=== PATIENT | male | born 1955 | race Caucasian/White ===

== ENCOUNTER 2022-06-18 12:14 | Emergency (ER) | payer MEDICARE, SELFPAY ==
[2022-06-18 12:27] VITALS: BP 155/83; PULSE 74; RESP 18; TEMP 36.5; O2SAT 97
--- NOTE | 2022-06-18 12:43 | ED.GENADUL_ITS ---
Discharge Plan Disposition Patient Disposition: HOME Condition: Improving Discharge Details Clinical Impression: COVID-19 Primary Care Provider: Unknown,Unknown ED Provider: Robe Hyman Home Meds and New Rx's Prescriptions: New Paxlovid (EUA) 300 mg (150 mg x 2)-100 mg tablets,dose pack See Rx Instructions .ROUTE .COMPLEX Qty: 30 0RF Rx Instructions: take TWO 150 mg tablets of nirmatrelvir with ONE 100 mg tablet of ritonavir twice daily for 5 days Continued amoxicillin 500 mg Capsule 1,000 mg PO Q8H codeine-guaifenesin 10-100 mg/5 mL Liquid 5 ml PO QHS Discharge Instructions Instructions: COVID-19 (Coronavirus Disease 2019) (ED), Face Coverings (Masks) and COVID-19 (ED) Additional Instructions: Home to rest today Continue small, frequent sips of fluids to maintain hydration. You qualify for the initiation of Paxlovid per the screening checklist tool provided by the FDA and CDC. Please follow-up with the [facility] for recheck if not improving in 3 to 5 days time Medical Decision Making 66-year-old male who denies any chronic medical problems. He has had upper respiratory illness for 4 days, today being day 5. Has had a cough with some production of sputum. He was seen at a clinic in [facility], [facility] he had an x-ray which revealed pneumonia and was placed on amoxicillin which she has been taking without difficulty. Today he had persistent mild myalgias and cough. His tested positive for COVID and he also had a home positive COVID test. Patient has no history of renal/hepatic impairment. No history of hypersensitivity reactions. He has no other concomitant medications. I do feel it is reasonable for him to continue the amoxicillin. He request treatment with Paxlovid which I believe is appropriate. I will prescribe this for him when he is stable for outpatient management. HPI General Mode of arrival: ambulatory . Date/Time Provider Initiated Documentation: 06/18/22 12:17 . Limitations to Documentation: no limitations . Information obtained by: patient . History of Present Illness 66 year old M presents to the emergency department with the chief complaint of 4-1/2 days upper respiratory illness, COVID positive at home, described as mild, and is localized to the chest. Patient reports no radiation. Patient started experiencing this day(s) and it has been intermittent. No relieving factors improve symptom(s), No exacerbating factors reported . Patient notes cough; denies chest pain, fever/chills, nausea/vomiting and shortness of breath. Patient did receive the following treatments prior to arrival, other (Amoxicillin for pneumonia diagnosed by x-ray) Related Data Home Medications Medication Instructions Recorded Confirmed amoxicillin 500 mg capsule 1,000 mg PO Q8H 06/18/22 06/18/22 codeine 10 mg-guaifenesin 100 mg/5 5 ml PO QHS 06/18/22 06/18/22 mL oral liquid nirmatrelvir 300 mg (150 mg See Rx Instructions PO .COMPLEX 06/18/22 x2)-ritonavir 100 mg tablet,dose #30 dose pk pack(EUA) (Paxlovid) Previous Rx's Medication Instructions Recorded nirmatrelvir 300 mg (150 mg See Rx Instructions PO .COMPLEX 06/18/22 x2)-ritonavir 100 mg tablet,dose #30 dose pk pack(EUA) (Paxlovid) Allergies Allergy/AdvReac Type Severity Reaction Status Date / Time No Known Allergies Allergy Unverified 06/18/22 12:31 General Stated Complaint: RespSymp CAROL: 4 Review of Systems Narrative: No cough, no difficulty breathing. Denies history of liver or kidney disease. No chronic medications. No history of hypersensitivity reactions. No use of a statin. 7 systems reviewed and otherwise negative PFSH All Active Problems (Updated 06/18/22 @ 12:52 by Robe Hyman MD) COVID-19 (Acute) Social History Smoking/Tobacco Use Status: Never Smoking risk assessment performed?: Yes Alcohol Intake: never Drug use: Never Substance use type: does not use Do you feel safe at home: Yes Do you feel safe in your relationship?: Yes Exam Narrative Exam Narrative: GEN: awake, alert, oriented 3. Pleasant, well groomed, interactive. HEAD: Normocephalic, atraumatic ENT: Mucous membranes moist, oropharynx unremarkable, External ear exam unremarkable EYES: PERRL, EOMI NECK: Full ROM, no ROGERS, no menigismus CHEST/RESP: Nontender, clear to auscultation bilateral, no wheeze/rhonchi/rales CARDIOVASCULAR: RRR, no murmur, rub aretha. 2+ Rad pulse bilateral ABDOMEN: Soft, nontender, no mass. +Bowel sounds EXT: Full ROM, no edema, no rash Neuro: Grossly normal neurologic exam, conversant, interactive. Psych: Speech fluent, thoughts congruent, affect normal Course Vital Signs Vital signs: Vital Signs Temperature 36.5 C 06/18/22 12:27 Pulse 74 06/18/22 12:27 Respiratory Rate 18 06/18/22 12:27 Blood Pressure 155/83 H 06/18/22 12:27 Pulse Oximetry 97 06/18/22 12:27 Temperature 36.5 C 06/18/22 12:27 Temperature Source Temporal Artery Scan 06/18/22 12:27 Pulse 74 06/18/22 12:27 Respiratory Rate 18 06/18/22 12:27 Respiratory Effort Non-Labored 06/18/22 12:33 Respiratory Depth Normal 06/18/22 12:33 Blood Pressure 155/83 H 06/18/22 12:27 Blood Pressure Position Sitting 06/18/22 12:27 Pulse Oximetry 97 06/18/22 12:27 Oxygen Delivery Method Room Air 06/18/22 12:27 Oxygen Flow Rate 0 06/18/22 12:27 Pain Level 0 06/18/22 12:27
== END 2022-06-18 13:04 | disposition home or self-care (01) ==
PROVIDERS: Emergency Provider Emergency Medicine
DX: U07.1 COVID-19 (principal)
CPT/HCPCS: 99283; 99284

== ENCOUNTER 2023-05-09 14:05 | Outpatient (REF) | payer MEDICARE, SELFPAY ==
[2023-05-09 21:32] LABS: ALT 43 U/L (16-63); AST 33 U/L (15-37); Albumin 3.7 g/dL (3.4-5.0); Alkaline Phosphatase 72 U/L (46-116); Anion Gap 6.9 mmol/L (3-11); BUN 10 mg/dL (7-18); Bilirubin, Total 0.9 mg/dL (0.2-1.0); CO2 28.1 mmol/L (21.0-32.0); CREATININE 0.9 mg/dL (0.70-1.30); Calculated LDL 142 mg/dL (<100); Chloride 102 mmol/L (98-107); Cholesterol 231 mg/dL (<200); Estimated GFR 93.61 (mL/min/1.73m2); Glucose 117 mg/dL (74-106); HDL Cholesterol 46 mg/dL (40-60); Potassium 4.1 mmol/L (3.5-5.1); Sodium 137 mmol/L (136-145); Total Protein 7.3 g/dL (6.4-8.2); Triglyceride 219 mg/dL (<150)
[2023-05-09 22:00] LABS: COMMENT (LAB VIEW ONLY) 34.08 mg/dL; Microalb ug/mg Crea 48.1 ug/mg Cr
[2023-05-10 19:58] LABS: PSA, Screening 1.4 ng/mL (<=4.5)
[2023-05-11 10:41] LABS: Hepatitis C Ab w Rflx HCV PCR Negative (Negative)
[2023-05-11 12:45] LABS: HIV-1/2 Ag & Ab Screen Negative (Negative)
== END 2023-05-09 14:06 | disposition home or self-care (01) ==
LOC: NCHCN 14:05
PROVIDERS: Visit Provider Nurse Practitioner Family
DX: E11.9 Type 2 diabetes mellitus without complications (principal); Z12.5 Encounter for screening for malignant neoplasm of prostate; I10 Essential (primary) hypertension; E66.9 Obesity, unspecified; Z11.59 Encounter for screening for other viral diseases
CPT/HCPCS: 80053; 80061; 84153; 86803; 87389; 82043; 82570; 83036

== ENCOUNTER 2023-09-12 17:58 | Outpatient (REF) | payer MEDICARE, SELFPAY ==
[2023-09-12 21:35] LABS: ALT 25 U/L (16-63); AST 20 U/L (15-37); Albumin 3.7 g/dL (3.4-5.0); Alkaline Phosphatase 84 U/L (46-116); Anion Gap 10.7 mmol/L (3-11); BUN 12 mg/dL (7-18); Bilirubin, Total 0.5 mg/dL (0.2-1.0); CO2 29.3 mmol/L (21.0-32.0); CREATININE 0.8 mg/dL (0.70-1.30); Calcium 9.5 mg/dL (8.5-10.1); Calculated LDL 86 mg/dL (<100); Chloride 101 mmol/L (98-107); Cholesterol 159 mg/dL (<200); Glucose 95 mg/dL (74-106); HDL Cholesterol 54 mg/dL (40-60); Potassium 4.1 mmol/L (3.5-5.1); Sodium 141 mmol/L (136-145); Total Protein 7.2 g/dL (6.4-8.2); Triglyceride 98 mg/dL (<150)
== END 2023-09-12 17:59 | disposition home or self-care (01) ==
LOC: NCHCN 17:58
PROVIDERS: Visit Provider Nurse Practitioner Family
DX: E11.9 Type 2 diabetes mellitus without complications (principal)
CPT/HCPCS: 80053; 80061

== ENCOUNTER 2023-12-12 22:14 | Outpatient (REF) | payer MEDICARE, SELFPAY ==
[2023-12-12 21:30] LABS: Hemoglobin A1C 5.8 % (<5.7)
[2023-12-12 21:34] LABS: ALT 24 U/L (16-63); AST 20 U/L (15-37); Albumin 3.6 g/dL (3.4-5.0); Alkaline Phosphatase 87 U/L (46-116); Anion Gap 7.7 mmol/L (3-11); BUN 18 mg/dL (7-18); Bilirubin, Total 0.6 mg/dL (0.2-1.0); CO2 29.3 mmol/L (21.0-32.0); CREATININE 0.9 mg/dL (0.70-1.30); Calcium 9.4 mg/dL (8.5-10.1); Calculated LDL 109 mg/dL (<100); Chloride 102 mmol/L (98-107); Cholesterol 191 mg/dL (<200); Estimated GFR 93.03 (mL/min/1.73m2); Glucose 92 mg/dL (74-106); HDL Cholesterol 57 mg/dL (40-60); Potassium 4.4 mmol/L (3.5-5.1); Sodium 139 mmol/L (136-145); Total Protein 6.9 g/dL (6.4-8.2); Triglyceride 129 mg/dL (<150)
== END 2023-12-12 22:15 | disposition home or self-care (01) ==
LOC: NCHCN 22:14
PROVIDERS: Visit Provider Nurse Practitioner Family
DX: E11.9 Type 2 diabetes mellitus without complications (principal)
CPT/HCPCS: 80053; 80061; 83036

== ENCOUNTER 2024-06-10 19:27 | Outpatient (CLI) | payer MEDICARE, SELFPAY ==
[2024-06-10 16:16] LABS: Abs Immature Grans 0.13 10^3/uL (0.0-0.06); Absolute Basophil Count 0.08 10^3/uL (0.0-0.2); Absolute Eosinophil Count 0.13 10^3/uL (0.0-0.7); Absolute Lymphocyte Count 1.46 10^3/uL (1.2-3.4); Absolute Neutrophil Count 8.28 10^3/uL (1.2-6.7); Basophils % 0.8 %; Eosinophils % 1.2 %; HCT 48.8 % (40.0-50.0); HGB 16.1 g/dL (13.5-17.5); Immature Grans % 1.2 %; Lymphocytes % 13.8 %; MCV 88 fL (80-95); MPV 10.1 fL (8.0-11.0); Monocytes % 4.7 %; Neutrophils % 78.3 %; Platelet Count 197 10^3/uL (130-400); RBC 5.55 10^6/uL (4.36-5.78); RDW 14.1 % (11.8-14.1); RDW-SD 45.3 fL; WBC 10.58 10^3/uL (4.4-10.8)
[2024-06-10 17:18] LABS: ALT 26 U/L (16-63); AST 15 U/L (15-37); Albumin 3.7 g/dL (3.4-5.0); Alkaline Phosphatase 86 U/L (46-116); BUN 11 mg/dL (7-18); Bilirubin, Direct 0.2 mg/dL (0.0-0.2); Bilirubin, Total 0.65 mg/dL (0.2-1.0); CREATININE 0.8 mg/dL (0.70-1.30); Calcium 9.8 mg/dL (8.5-10.1); Chloride 102 mmol/L (98-107); FREE T4 1.01 ng/dL (0.76-1.46); Glucose 111 mg/dL (74-106); Potassium 4.5 mmol/L (3.5-5.1); Sodium 138 mmol/L (136-145); TSH 1.96 uIU/Ml (0.36-3.74); Total Protein 6.6 g/dL (6.4-8.2)
--- OUTSIDE RECORDS SUMMARY | 2024-06-10 19:35 | XMS_ITS ---
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 If you have left the hospital and have any questions, please contact your primary care physician. Reason For Referral No Data Found Allergies and Adverse Reactions Allergy Substance Reaction Severity Start Date Concern Status Co de Code System No Known Drug Allergies Active 684217814 SNOMED-CT Plan of Treatment PRE-OP TESTING 12/25/2022 Encounters Encounter Diagnosis Start Date Code Code Sys tem Follow-up orthopedic assessment 01/17/2023 [id number] SNOMED-CT Personal Care Team Section Performer Name Performer Role Active Date Inactive Da te
--- OUTSIDE RECORDS SUMMARY | 2024-06-10 19:35 | XMS_ITS | Continuity of Care Document ---
Author Organization [facility], [facility] Address [address] [place] [address] Assessment Encounter Date Assessment Date Assessment LastModified by Organization Details LastModified Time 05/15/2024 05/15/2024 The clinician assessed that the patient's blood sugar levels are within the normal range and that the patient may not be used to having normal blood sugar levels after being high for a long period of time. The clinician does not believe there is a need to change the patient's diabetes medications. The patient's episode of passing out while driving may have been due to dehydration from not drinking enough water during the hot weather. The clinician recommends increasing water intake, especially during hot weather and when working outdoors. [email or web address] Not available 05/16/2024 07:22:46 Plan of Treatment Reminders Order Date Submit Date Provider Last Modified By Organization Details Last Modified Time Details Appointments Follow Up 30 2023 04:30P M Not available Not available Not available Lab glucose, fingerst ick, blood 2023 024 [email or web address] [facility], [address] [facility], [place], [address], 05/16/2024 07:22:48 Referral None recorded . Procedures None recorded . Surgeries None recorded . Imaging None recorded . Medication Orders None recorded . Patient TargetsNo targets recorded. Patient Instructions Encounter Date Encounter Id Patient Instructions Last Modified By Organization Details Last Modified Time 05/15/2024 [id number] diet Not available 06/2024 07:23:57 exercise Not available 05/16 07:23:57 - Continue takin g diabetes medications, including metformin and Victoza - Continue taking blood pressure medication without changes - Increase water intake, especially during hot weather and when working outdoors - If blood sugar levels drop below 84, consider having a small snack - Follow up with primary care provider in one month [email or web address] Not available 05/15/2024 15:22:46 Reason for Referral None Reported. Results Created Date Observation Date Name Description Value Unit Range Abnormal Flag Note LastModifiedBy Organization Detail LastModifiedTime 05/15/20 24 05/15/2024 gluco se, finge rstic k, blood glucose 111 mg/dL 70-100 Not Available [address], [place], [address], 05/15/2024 15:11:25 Result Notes None recorded. Problems Name Problem SNOMED Code Status Onset Date Resolution Date Notes Provider Name and Address Organization Details Recorded Time Faustinoterry james hyperten matthew 82431240 Active 2022 [facility] 14:47:20 Osteoart hritis of knee 676119341 Active 2022 Problem Code: M17.9; Problem Code Type: ICD-10; [facility] 14:47:50 Hyperlip idemia 96971670 Active 2022 [facility] 4 14:47:29 Acquired right hallux rigidus 80318197644 4100 Active 2022 [facility] 4 14:46:23 Pain of joint of knee 7122662412 Active 2022 Bilatera l [facility] 4 14:48:08 Atopic dermatit is 53680550 Active 2022 [facility] 4 14:46:42 Cardiome leesa 0754676 Active 2022 --[facility]R [facility] 14:46[facility]59 Type 2 diabetes mellitus without complica tion 364667039 [facility] 20[facility] 14:49:19 Screenin g for malignan t neoplasm of prostate Active 2022 Problem Code: Z12.5; Problem Code Type: ICD-10; [facility] 14:48:30 Severe obesity 30392712002 104 Active 2022 (BMI > = 40) [facility] 14:49:07 Screenin g for malignan t neoplasm of colon Completed 202206/08/2023 Problem Code: Z12.11; Problem Code Type: ICD-10; Not Available [facility] 3 05:48:58 Adult health examinat ion Completed 202212/11/2023 Problem Code: Z00.00; Problem Code Type: ICD-10; [facility] 14:46:27 Dehiscen ce of external surgical incision wound 07025234003 9108 Completed 202205/09/2023 Problem Code: T81.31xA ; Problem Code Type: ICD-10; Not Available [facility] 3 05:48:58 Urine microalb umin detected 861605167 Active [address], [place], [address] , [facility] 3 16:50:23 Erectile dysfunct ion 800115812 Active [address], [place], [address] , [facility] 4 17:12:24 Allergic rhinitis 47917598 Active 2023 GOLDEN PANG, [employer]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 Medical Equipment None Reported. Allergies No known drug allergies Medications Name Sig Start Date Stop Date Status Note LastModified by Organization Details LastModified Time atorvasta tin 80 mg tablet TAKE 1 TABLET BY MOUTH EVERY DAY active Not Available Not Available No t Available atorvasta tin 20 mg tablet TAKE 1 TABLET BY MOUTH EVERY EVENING 03/19 completed Not Available Not Available Not Available clindamyc in HCl 300 mg capsule TAKE 1 CAPSULE BY MOUTH EVERY 6 HOURS FOR 7 DAYS 09/12 completed Not Available Not Available Not Available sildenafi l 50 mg tablet TAKE 1 TABLET BY MOUTH EVERY DAY active Not Available Not Available No t Available prednison e 20 mg tablet 2 PO daily X 3 days, then 1 PO daily X 3 days, then 0.5 PO daily X 3 days active Not Available Not Available No t Available triamcino lone acetonide 0.1 % topical cream Apply a small amount to affected area once a day as needed active Not Available Not Available No t Available tolnaftat e 1 % topical cream APPLY TOPICALL Y TO THE AFFECTED AREA TWICE DAILY 09/12 completed Not Available Not Available Not Available cephalexi n 500 mg capsule TAKE 1 CAPSULE BY MOUTH TWICE DAILY FOR 10 DAYS 09/12 completed Not Available Not Available Not Available losartan 25 mg tablet TAKE 1 TABLET BY MOUTH DAILY active Not Available Not Available No t Available Advil 200 mg tablet as needed 09/12 completed Not Available Not Available Not Available hydroxyzi ne HCl 25 mg tablet TAKE 1 TABLET BY MOUTH THREE TIMES DAILY FOR 10 DAYS NEEDED FOR ITCHING active Not Available Not Available No t Available methylpre dnisolone 4 mg tablets in a dose pack Take 1 dose pk by oral route as directed for 6 days, for itching. Take with food. No ibuprofe n. Monitor blood glucose carefull y.. 05/15 completed Not Available Not Available Not Available fluticaso ne propionat e 50 mcg/actua tion nasal spray,ayad pension SHAKE LIQUID AND USE 2 SPRAYS IN EACH NOSTRIL EVERY DAY active Not Available Not Available No t Available metformin ER 500 mg tablet,ex tended release 24 hr TAKE 2 TABLETS BY MOUTH EVERY DAY 2023 active Has held metformi n since 05/12/24, per triage instruct ion. Not Available Not Available Not Available oxycodone 5 mg tablet TAKE 1 TABLET BY MOUTH EVERY 6 HOURS FOR 3 DAYS NEEDED 09/12 completed Not Available Not Available Not Available olopatadi ne 0.2 % eye drops INSTILL 1 DROP INTO AFFECTED EYE(S) BY OPHTHALM IC ROUTE ONCE DAILY active Not Available Not Available No t Available Novofine 32 32 gauge x 1/4 needle Use 1 needle subcutan eously once daily with Victoza active Not Available Not Available No t Available liragluti de 0.6 mg/0.1 mL (18 mg/3 mL) subcutane ous pen injector Inject by subcutan eous route for 45 days. active Not Available Not Available No t Available OneTouch Verio test strips Use 1 strip via meter once a day as directed Check blood sugar daily. If blood sugar is less than 70 drink 4oz of juice and recheck in 15 mins until BG in within normal range (90-120) . active Not Available Not Available No t Available Trulicity 1.5 mg/0.5 mL subcutane ous pen injector ADMINIST ER 1.5 MG UNDER THE SKIN WEEKLY FOR 4 WEEKS active Not Available Not Available No t Available OneTouch Verio Flex Meter USE DIRECTED active Not Available Not Available No t Available OneTouch Delica Plus Lancet 33 gauge USE 1 LANCET ONCE A DAY TO CHECK BLOOD SUGAR IN MORNING NEEDED DRINK 4OZ JUICE IF BLOOD SUGAR LESS THAN 70 RECHECK IN 15 MINS AND REPEAT active Not Available Not Available No t Available Trulicity 3 mg/0.5 mL subcutane ous pen injector Inject 3 mg weekly after completi ng 4 weeks of 1.54 mg dose 2023 active Not Available Not Available Not Avai lable Ozempic 1 mg/dose (4 mg/3 mL) subcutane ous pen injector Inject 1 mg every week by subcutan eous route. 03/19 completed Not Available Not Available Not Available Ozempic 0.25 mg or 0.5 mg (2 mg/3 mL) subcutane ous pen injector INJECT 0.5 MG UNDER THE SKIN ONCE WEEKLY 02/10 completed Not Available Not Available Not Available Vitals Date Recorded Body height Body mass index (BMI) Body weight Body temperature Oxygen saturation Oxygen saturation in Arterial blood by Pulse oximetry Heart rate Systolic blood pressure Diastolic blood pressure Provider Name and Address Organization Details Last Updated DateTime 4 167.64 cm 39.8 kg/m2 277507. 6 g 98.1 [degF] 97 % 97 % 68 /min 142 mm[Hg] 96 mm[Hg] YUMIKO LARKIN RN [facility] 15:01:09 Social History Question Answer Notes LastModified by Organizat ion Details LastModified Time Tobacco Smoking Status Never Smoker ANISHA ANGUIANO, [facility] 12/12/2023 16:44:25 What Was The Date Of Your Most Recent Tobacco Screening? 04/09/2024 [email or web address] Information not available 04/09/2024 Has Tobacco Cessation Counseling Been Provided? No [email or web address] Information not available 05/15/2024 Do You Or Have You Ever Used Any Other Forms Of Tobacco Or Nicotine? No [email or web address] Information not available 05/15/2024 Sex: Male Functional Status None recorded. Mental Status None recorded. Family History Nothing Reported Notes:*Problem: Mother: dece ased age 83 heart disease, Pancreatic Cancer. Medical History No medical history recorded. Immunizations Vaccine Type Date Status Provider Name and Address Organization Details Recorded Time Tdap 08/22/2021 completed Not Available [facility] 06:09:43 COVID-19, mRNA, LNP-S, PF, 100 mcg/0.5mL dose or 50 mcg/0.25mL dose 12/15/2020 completed Not Available [facility] 08/17/2023 06:09:43 COVID-19, mRNA, LNP-S, PF, 100 mcg/0.5mL dose or 50 mcg/0.25mL dose 01/12/2021 completed Not Available [facility] 08/17/2023 06:09:43 Pneumococcal conjugate PCV20, polysaccharide [id number] conjugate, adjuvant, PF 05/09/2023 completed Not Available [facility] 08/17/2023 06:09:43 COVID-19, mRNA, LNP-S, bivalent, PF, 30 mcg/0.3 mL dose 07/28/2022 completed Not Available [facility] 08/17/20 06:09:43 COVID-19, mRNA, LNP-S, PF, erin-sucrose, 30 mcg/0.3 mL 09/12/2023 completed UYMIKO LARKIN RN null, [facility] 09/19/2023 11:57:43 Influenza, high-dose, quadrivalent, PF 09/12/2023 completed YUMIKO LARKIN RN null, [facility] 09/19/2023 11:57:43 Past Encounters Encounter ID Performer Location Encounter Start Date Encounter Closed Date Diagnosis/Indication Diagnosis SNOMED-CT Code Diagnosis ICD10 Code [id number] MEGHANA DAVIES, [address] [address] 05/15/2024 14:48:08 05/15/2024 15:21:58 Type 2 diabetes mellitus without complication 869238227 E11.9 Essential hypertension 17767247 I10 Obesity 069923950 E66.9 Health Concerns Section Related Observation LastModified by Organization Detai ls LastModified Time None Recorded Concern Status LastModified by Organization Details LastModified Time None Recorded Payers Encounter Date Sequence Insurance Name Policy Number Policy Esparza Covered Member ID Esparza Member ID Guarantor Name 05/15/2024 1 [facility] (MEDICARE REPLACEMENT/A DVANTAGE - PPO) [id number] Tomy Wan [id number] Tomy Wan Notes Date Note Type Note Provider Name and Address Organization Details Recorded Time 05/15/2024 text/html HPI Notes: 68-year-old male patient presenting with concerns about blood sugar levels, slightly high blood pressure, and a recent episode of passing out. The patient has been experiencing episodes of sweating and feeling like his blood sugars are low. He has measured his blood sugar levels and found them to be in the range of 78 to 111. The patient's primary care provider and backup doctor believe that his blood sugar levels are actually normal, and he may not be used to having normal blood sugar levels after being high for a long period of time. The patient's blood pressure was slightly elevated at 142/90 during the visit, but it decreased to 128/84 after discussing his concerns with the clinician. The patient is currently on blood pressure medication, which the clinician recommends continuing. The patient experienced an episode of passing out on his way home from work while driving. He did not have any chest pain, shortness of breath, or dizziness at the time and was not dehydrated. The clinician suspects that the patient may have been dehydrated due to the hot weather and not drinking enough water. 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 MEGHANA DAVIES, [employer] [address], [place], [address], [place] - [facility] 05/16/2024 07:24:03
--- OUTSIDE RECORDS SUMMARY | 2024-06-10 19:35 | XMS_ITS | Continuity of Care Document ---
Author Organization [facility], [facility] Address [address] [place] [address] Assessment No assessment recorded. Plan of Treatment Reminders Order Date Submit Date Provider Last Modified By Organization Details Last Modified Time Details Appointments Follow Up 2023 04:30P M Not available Not available Not available Lab None recorded. Referral None recorded. Procedures None recorded. Surgeries None recorded. Imaging None recorded. Medication Orders hydroxyzi ne HCl 25 mg tablet 2023 024 [facility][id number], [address], [place], [place], [id number], 06/02/2024 17:20:01 prednison e 20 mg tablet 2023 024 [facility] #[id number], [address], [place], [place], [id number], 06/02/2024 17:20:00 Patient TargetsNo targets recorded. Patient InstructionsNo instructions recorded. Reason for Referral None Reported. Problems Name Problem SNOMED Code Status Onset Date Resolution Date Notes Provider Name and Address Organization Details Recorded Time [facility] hyperten matthew 40878871 Active 2022 Mariann nagy [facility] 14:47:20 Osteoart hritis of knee 183937730 Active 2022 Problem Code: M17.9; Problem Code Type: ICD-10; Mariann nagy [facility] 03/05/202 4 14:47:50 Hyperlip idemia 57887331 Active 2022 [facility] 4 14:47:29 Acquired right hallux rigidus 02541051668 4100 Active 2022 [facility] 4 14:46:23 Pain of joint of knee 8841457068 Active 2022 Bilatera l [facility] 4 14:48:08 Atopic dermatit is 37108334 Active 2022 [facility] 4 14:46:42 Cardiome leesa 6655353 Active 2022 --noted on CXR [facility] 4 14:46:59 Type 2 diabetes mellitus without complica tion 267660926 Active 2022 [facility] 4 14:49:19 Screenin g for malignan t neoplasm of prostate Active 2022 Problem Code: Z12.5; Problem Code Type: ICD-10; [facility] 4 14:48:30 Severe obesity 29673801428 104 Active 2022 (BMI > = 40) [facility] 4 14:49:07 Screenin g for malignan t neoplasm of colon Completed 202206/08/2023 Problem Code: Z12.11; Problem Code Type: ICD-10; Not Available [facility] 3 05:48:58 Adult health examinat ion Completed 202212/11/2023 Problem Code: Z00.00; Problem Code Type: ICD-10; [facility] 4 14:46:27 Dehiscen ce of external surgical incision wound 08556080302 9108 Completed 202205/09/2023 Problem Code: T81.31xA ; Problem Code Type: ICD-10; Not Available [facility] 3 05:48:58 Urine microalb umin detected 939037431 Active 2022 MIQUEL MARTIN [address], [place], [address] , [facility] 3 16:50:23 Erectile dysfunct ion 888537224 Active [address], [place], [address] , [facility] 4 17:12:24 Allergic rhinitis 62184243 Active 2023 MIQUEL MARTIN [address], [place], [address] , [facility] 4 18:56:22 Obesity 976125937 Active [address], [place], [address] , [facility] 4 07:23:26 Problem Notes None recorded. Medical [...] Arterial blood by Pulse oximetry Heart rate Respiratory rate Systolic blood pressure Diastolic blood pressure Provider Name and Address Organization Details Last Updated DateTime 4 167.64 cm 39.7 kg/m2 051975. 72 g 98.4 [degF] 96 % 96 % 87 /min 17 /min 153 mm[Hg] 89 mm[Hg] LARS SCHERER MA [facility] 16:04:11 Social History Question Answer Notes LastModified by Organizat ion Details LastModified Time Tobacco Smoking Status Never Smoker ANISHA ANGUIANO [facility] 12/12/2023 16:44:25 What Was The Date Of Your Most Recent Tobacco Screening? 04/09/2024 [email or web address] Information not available 04/09/2024 Has Tobacco Cessation Counseling Been Provided? No [email or web address] Information not available 05/15/2024 Do You Or Have You Ever Used Any Other Forms Of Tobacco Or Nicotine? No [email or web address] Information not available 05/15/2024 Sex: Male Functional Status None recorded. Mental Status None recorded. Family History Nothing Reported Notes:*Problem: Mother: dece ased age 83 heart disease, Pancreatic Cancer. Medical History No medical history recorded. Immunizations Vaccine Type Date Status Provider Name and Address Organization Details Recorded Time Tdap 08/22/2021 completed Not Available [facility] 06:09:43 COVID-19, mRNA, LNP-S, PF, 100 mcg/0.5mL dose or 50 mcg/0.25mL dose 12/15/2020 completed Not Available [facility] 08/17/2023 06:09:43 COVID-19, mRNA, LNP-S, PF, 100 mcg/0.5mL dose or 50 mcg/0.25mL dose 01/12/2021 completed Not Available [facility] 08/17/2023 06:09:43 Pneumococcal conjugate PCV20, polysaccharide [id number] conjugate, adjuvant, PF 05/09/2023 completed Not Available [facility] 08/17/2023 06:09:43 COVID-19, mRNA, LNP-S, bivalent, PF, 30 mcg/0.3 mL dose 07/28/2022 completed Not Available [facility] 08/17/20 06:09:43 COVID-19, mRNA, LNP-S, PF, erin-sucrose, 30 mcg/0.3 mL 09/12/2023 completed KATHERYN RICHMOND, [facility] 09/19/2023 11:57:43 Influenza, high-dose, quadrivalent, PF 09/12/2023 completed KATHERYN RICHMOND, [facility] 09/19/2023 11:57:43 Past Encounters Encounter ID Performer Location Encounter Start Date Encounter Closed Date Diagnosis/Indication Diagnosis SNOMED-CT Code Diagnosis ICD10 Code [id number] MIQUEL GOODEN [address] [address] 05/15/2024 14:48:08 05/15/2024 15:21:58 Type 2 diabetes mellitus without complication 496078011 E11.9 Essential hypertension 33038342 I10 Obesity 977427182 E66.9 [id number] GIORGIOMIQUEL REES [address] [place] [address] 06/02/2024 15:16:51 06/02/2024 17:21:01 Atopic dermatitis 82172670 L20.9 Health Concerns Section Related Observation LastModified by Organization Detai ls LastModified Time None Recorded Concern Status LastModified by Organization Details LastModified Time None Recorded Payers Encounter Date Sequence Insurance Name Policy Number Policy Esparza Covered Member ID Esparza Member ID Guarantor Name 06/02/2024 1 [facility] (MEDICARE REPLACEMENT/A DVANTAGE - PPO) [id number] Tomy Wan [id number] Tomy Wan Notes Date Note Type Note Provider Name and Address Organization Details Recorded Time 06/02/2024 text/html HPI Notes: Brayden mills presents due to concern for worsening of chronic pruritis , with no new identifiable triggers, no new soaps, lotions, exposures. Symptoms have been ongoing for several months, but feels the last 4-5 days, symptoms have been more severe, and interfering with sleep. Has been prescribed Rx steroid cream (triamcinolone), advised use of PO cetirizine through dermatology. Her reports prescription steroid and antihistamines are minimally helpful. Has been prescribed hydroxyzine in the past, which he states didn't work, but does not have available and has not recently trialed. Has seen [facility] 12/2022 and again March 23, 2023. Has had biopsy of rash performed. Has pending follow up with their office at the end of June 2024. Was seen 04/09/24 through PCP office, advised thick emollient lotions for atopic skin care, and short term Medrol dose pack taper was prescribed. He admits to not using the emollient creams as directed, and did not restart topical creams until the rash returned. With taking the steroid, symptoms improved, but 2 days after completing the oral steroid, the itching returned and he then restarted use of topical creams. He did attempt use of Vaseline, bag balm, Eucerin, each for up to twice daily for a week. Most recently using an OTC emollient with a green label. He has a prescription triamcinolone cream, which he has been using twice a day the last 2 weeks. No history of CKD, LFTs checked 12/2023 all WNL. No other close contact with similar rash. [address], [place], [address], [facility]. 06/03/2024 08:56:53
--- OUTSIDE RECORDS SUMMARY | 2024-06-10 19:35 | XMS_ITS ---
Author Organization Unknown Address [address] [place] [phone] Phone Care Team Providers Care Format Proofreader Name Role Phone DOMINGO John Attending Unavailable KAIT HERNANDEZ Primary Unavailable Social History Type Status Start Date End Date Code Code Syst em Smoking History Never smoker (Never Smoked) 305734089 SNOMED CT Sex Male Hospital Discharge Instructions [...] Code System No Known Drug Allergies Active 818956859 SNOMED-CT Plan of Treatment PRE-OP TESTING 12/25/2022 Encounters Encounter Diagnosis Start Date Code Code Sys tem Dehiscence of external surgical incision wound 023 911568486357677 SNOMED-CT Personal Care Team Section Performer Name Performer Role Active Date Inactive Da te
--- OUTSIDE RECORDS SUMMARY | 2024-06-10 19:35 | XMS_ITS ---
Author Organization Unknown Address [address] [place] [phone] Phone Care Team Providers Care Curriculum And Assessment Coordinator Name Role Phone DOMINGO John Attending Unavailable KAIT HERNANDEZ Primary Unavailable Social History Type Status Start Date End Date Code Code Syst em Smoking History Never smoker (Never Smoked) 120510028 SNOMED CT Sex Male Hospital Discharge Instructions [...] Code System No Known Drug Allergies Active 062679579 SNOMED-CT Plan of Treatment PRE-OP TESTING 12/25/2022 Encounters Encounter Diagnosis Start Date Code Code Sys tem Follow-up orthopedic assessment 01/05/2023 442847270 SNOMED-CT Personal Care Team Section Performer Name Performer Role Active Date Inactive Da te
--- OUTSIDE RECORDS SUMMARY | 2024-06-10 19:35 | XMS_ITS | Continuity of Care Document ---
Author Organization [facility], [facility] Address [address] [place] [address] Assessment Encounter Date Assessment Date Assessment LastModified by Organization Details LastModified Time 04/09/2024 04/09/2024 Pt with severe pruritis, likely 2ry to known atopic dermatitis. Discussed this is the itch that rashes and that thick emollients will be the way to prevent exacerbations. Due tp severity of pruritis interfering with ADLs (couldn't go ot work today) and diffuse nature of his itching, will begin a medrol dose eleazar. Pt has well controlled DM2, and has HTN discussed the SE of this medication in detail: Discussed risks and benefits of steroids with patient in detail including but not limited to increased hunger/irritability /agitation/sleeples sness, anxiety. In diabetes it can increase blood sugar, and in HTN can increase blood pressure. In large doses for long periods of time this medication can lead to immunosuppression and weight gain. Advised to always take with food and to monitor for signs of GI bleed such as abdominal pain, blood in stool or black tarry stools. Discussed that this is a temporary way to ideally relieve itching so that patient can focus on hydrating skin aggressively. Discussed that patient should be taking lukewarm showers or very dilute bleach baths, applying thick, alda, scentless emollients over entire body. Triamcinolone BID on extremities with sxs for 14 days, can cause skin thinning and skin lightening. Can take antihistamine daily for sxs. discussed that steroids are not to be given often for these sxs, in this case due to pt's discomfort. Please look for triggers that make his dermatitis worse (environmental, food, detergent, soap) Monitor and seek additional medical care in the case of any redness, increased pain, swelling, discharge, fever, numbness or tingling. Pt understands and agrees. Keep FU with Derm [email or web address] Not available 04/09/2024 10:13:45 Plan of Treatment Reminders Order Date Submit Date Provider Last Modified By Organization Details Last Modified Time Details Appointments Follow Up 30 2023 04:30P M Not available Not available Not available Lab None recorded. Referral None recorded. Procedures None recorded. Surgeries None recorded. Imaging None recorded. Medication Orders methylpre dnisolone 4 mg tablets in a dose pack 2023 024 [facility][id number], [address], [place], [place], [id number], 05/15/2024 14:56:00 Patient TargetsNo targets recorded. Patient InstructionsNo instructions recorded. Reason for Referral None Reported. Problems Name Problem SNOMED Code Status Onset Date Resolution Date Notes Provider Name and Address Organization Details Recorded Time Essterry james hyperten matthew 59412169 Active 2022 [facility] 14:47:20 Osteoart hritis of knee 568423008 Active 2022 Problem Code: M17.9; Problem Code Type: ICD-10; [facility] 14:47:50 Hyperlip idemia 44223962 Active 2022 [facility] 4 14:47:29 Acquired right hallux rigidus 32185560271 4100 Active 2022 [facility] 14:46:23 Pain of joint of knee 0705929564 Active 2022 Bilgrabiela l [facility] 14:48:08 Atopic dermatit is 04670140 Active 2022 [facility] 4 14:46:42 Cardiome leesa 2866260 Active 2022 --noted on CXR Mariann Finley [facility] 4 14:46:59 Type 2 diabetes mellitus without complica tion 863282330 Active 2022 Mariann Finley [facility] 4 14:49:19 Screenin g for malignan t neoplasm of prostate Active 2022 Problem Code: Z12.5; Problem Code Type: ICD-10; [facility] 4 14:48:30 Severe obesity 79112450163 104 Active 2022 (BMI > = 40) [facility] 4 14:49:07 Screenin g for malignan t neoplasm of colon Completed 202206/08/2023 Problem Code: Z12.11; Problem Code Type: ICD-10; Not Available [facility] 3 05:48:58 Adult health examinat ion Completed 202212/11/2023 Problem Code: Z00.00; Problem Code Type: ICD-10; [facility] 4 14:46:27 Dehiscen ce of external surgical incision wound 56693703005 9108 Completed 202205/09/2023 Problem Code: T81.31xA ; Problem Code Type: ICD-10; Not Available [facility] 3 05:48:58 Urine microalb umin detected 203546005 Active 2022 MIQUEL AMRTIN [address], [place], [address] , [facility] 3 16:50:23 Erectile dysfunct ion 560323876 Active [address], [place], [address] , [facility] 4 17:12:24 Allergic rhinitis 74758294 Active 2023 GOLDEN PANG [facility] [address], [place], [address] , [facility] 4 18:56:22 Obesity 649196535 Active 2023 MIQUEL GOODEN [address], [place], [address] , [facility] 4 07:23:26 Problem Notes None recorded. [...] height Body mass index (BMI) Body weight Oxygen saturation Oxygen saturation in Arterial blood by Pulse oximetry Heart rate Body temperature Systolic blood pressure Diastolic blood pressure Provider Name and Address Organization Details Last Updated DateTime 167.64 cm 38.9 kg/m2 213248. 76 g 95 % 95 % 72 /min 97.8 [degF] 142 mm[Hg] 82 mm[Hg] MILES MACKENZIE RN [facility] 09:16:49 Social History Question Answer Notes LastModified by Organizat ion Details LastModified Time Tobacco Smoking Status Never Smoker ANISHA ANGUIANO, [facility] 12/12/2023 16:44:25 What Was The Date Of Your Most Recent Tobacco Screening? 04/09/2024 [email or web address] Information not available 04/09/2024 Has Tobacco Cessation Counseling Been Provided? No Information not available 05/15/2024 Do You Or Have You Ever Used Any Other Forms Of Tobacco Or Nicotine? No [email or web address] Information not available 05/15/2024 Sex: Male Functional Status None recorded. Mental Status None recorded. Family History Nothing Reported Notes:*Problem: Mother: dece ased age 83 heart disease, Pancreatic Cancer. Medical History No medical history recorded. Immunizations Vaccine Type Date Status Provider Name and Address Organization Details Recorded Time Tdap 08/22/2021 completed Not Available [facility] 06:09:43 COVID-19, mRNA, LNP-S, PF, 100 mcg/0.5mL dose or 50 mcg/0.25mL dose 12/15/2020 completed Not Available [facility] 08/17/2023 06:09:43 COVID-19, mRNA, LNP-S, PF, 100 mcg/0.5mL dose or 50 mcg/0.25mL dose 01/12/2021 completed Not Available [facility] 08/17/2023 06:09:43 Pneumococcal conjugate PCV20, polysaccharide [id number] conjugate, adjuvant, PF 05/09/2023 completed Not Available [facility] 08/17/2023 06:09:43 COVID-19, mRNA, LNP-S, bivalent, PF, 30 mcg/0.3 mL dose 07/28/2022 completed Not Available [facility] 08/17/20 06:09:43 COVID-19, mRNA, LNP-S, PF, erin-sucrose, 30 mcg/0.3 mL 09/12/2023 completed KATHERYN RICHMOND, [facility] 09/19/2023 11:57:43 Influenza, high-dose, quadrivalent, PF 09/12/2023 completed KATHERYN RICHMOND, [facility] 09/19/2023 11:57:43 Past Encounters Encounter ID Performer Location Encounter Start Date Encounter Closed Date Diagnosis/Indication Diagnosis SNOMED-CT Code Diagnosis ICD10 Code [id number] GOLDEN PANG [facility] [employer] [address] [address] 03/19/2024 17:36:10 03/19/2024 18:32:58 Type 2 diabetes mellitus without complication 810367620 E11.9 Hyperlipidemia 77252056 E78.5 Allergic rhinitis 281481 04 J30.[id number] [address] 04/09/2024 09:05:30 04/09/2024 09:41:45 Atopic dermatitis 94943927 L20.9 Itching of skin 53406333 0 L29.9 Health Concerns Section Related Observation LastModified by Organization Detai ls LastModified Time None Recorded Concern Status LastModified by Organization Details LastModified Time None Recorded Payers Encounter Date Sequence Insurance Name Policy Number Policy Esparza Covered Member ID Esparza Member ID Guarantor Name 04/09/2024 1 [facility] (MEDICARE REPLACEMENT/A DVANTAGE - PPO) [id number] Tomy Wan [id number] Tomy Wan Notes Date Note Type Note Provider Name and Address Organization Details Recorded Time 04/09/2024 text/html HPI Notes: Pt is a 68 y/o M here for severe pruritis over the past 2-3 days that has gotten worse. Pt has a hx of atopic dermatitis, bx from derm 03/2023. He has been trying benadryl, claritin, triamcinolone, bleach baths, hydroxyzine, calamine lotion without relief. Pt states he cannot stop scratching and it is making him bleed. Areas of b/l arms, back of neck, abdomen, back, popliteal area b/l, and ankle. He reports using vaseline lotion, pump, yellow bottle, no scent without relief. Pt reports no one in house wiht similar sxs. Pt states he got 2 hours of sleep last night due to scratching. DEnies worsening rash, states it is about the same as usual. Denies any new food, skin products, soap, lotions, detergents, hair dye, irritant exposure. Hx DM2, generally well controlled. LORETTA Thornton - [facility]. 04/09/2024 10:14:32
--- OUTSIDE RECORDS SUMMARY | 2024-06-10 19:35 | XMS_ITS ---
Author Organization Unknown Address [address] [place] [phone] Phone Care Team Providers Care Expeditionary Fighting Vehicle Crewman Name Role Phone DOMINGO John Attending Unavailable KAIT HERNANDEZ Primary Unavailable Results C REACTIVE PROTEIN HIGH SENS ITIVITY* - Collect Date/Time: 12/25/2022 15:00 [facility] ID: [id number] [address] [place] [address], [address] LOINC: 43498-1 Test Value Unit Reference Range Code Code System Flag CRP-HIGH SENS. 2.50 mg/L L=0.00 H=3.00 15396-1 LOINC CRP-HIGH SENS 0.25 mg/dL L=0.00 H=0.30 25305-0 LOINC BASIC METABOLIC PANEL (BMP) - Collect Date/Time: 12/25/2022 15:00 [facility] ID: [id number] [address] [place] [address], [address] LOINC: 89434-6 Test Value Unit Reference Range Code Code System Flag GLUCOSE 152 mg/dL L=70 H=116 2345-7 LOINC H BUN 10 mg/dL L=6 H=25 3094-0 LOINC CREATININE 0.90 mg/dL L=0.67 H=1.17 2160-0 LOINC SODIUM SERUM 141 mmol/L L=136 H=145 2951-2 LOINC POTASSIUM SERUM 3.7 mmol/L L=3.4 H=5.2 2823-3 LOINC CHLORIDE SERUM 103 mmol/L L=96 H=110 2075-0 LOINC CARBON DIOXIDE (CO2) 30 mmol/L L=22 H=34 2028-9 LOINC ANION GAP 7.8 mmol/L 82889-3 LOINC CALCIUM SERUM 8.9 mg/dL L=8.2 H=10.2 26402-5 LOINC AGE 67 years eGFR (non-Afr.Amer.) 84 mL/min 19619-3 LOINC eGFR (Afr-Turkish) 102 mL/min 05321-5 LOINC CBC W/ DIFFERENTIAL* - Colle ct Date/Time: 12/25/2022 15:00 [facility] ID: [id number] [address] [place], [place], [address] LOINC: 48159-2 Test Value Unit Reference Range Code Code System Flag WBC 7.41 th/cmm L=5.00 H=10.00 6690-2 LOINC NEUT % 65.2 % L=40.0 H=80.0 LYMPH % 25.5 % L=10.0 H=50.0 MONO % 3.4 % L=2.0 H=12.0 87946-7 LOINC EOS % 4.3 % L=0.0 H=8.0 BASO % 0.8 % L=0.0 H=3.0 IG % 0.8 % L=0.0 H=1.1 2514-8 LOINC NRBC % 0.0 % L=0.0 H=0.0 82750-3 LOINC NEUT abs count 4.8 th/cmm L=1.6 H=8.4 751-8 LOINC LYMPH abs count 1.9 th/cmm L=1.5 H=4.0 731-0 LOINC MONO abs count 0.3 th/cmm L=0.2 H=1.0 742-7 LOINC EOS abs count 0.3 th/cmm L=0.0 H=0.5 711-2 LOINC BASO abs count 0.1 th/cmm L=0.0 H=0.2 704-7 LOINC IG abs count 0.1 th/cmm L=0.0 H=0.1 42809-0 LOINC NRBC abs count 0.0 mil/cmm L=0.0 H=0.0 16647-6 LOINC RBC 5.64 mil/cmm L=4.30 H=6.20 789-8 LOINC HEMOGLOBIN 16.1 gm/dL L=13.0 H=17.0 718-7 LOINC HEMATOCRIT 49 % L=45 H=52 4544-3 LOINC MCV 87 fL L=82 H=92 787-2 LOINC MCH 28.5 pg L=27.0 H=31.0 785-6 LOINC MCHC 32.7 % L=32.0 H=36.0 786-4 LOINC RDW-SD 43.8 fL L=39.0 H=49.0 788-0 LOINC PLATELET COUNT 166 th/cmm L=150 H=450 777-3 LOINC Social History Type Status Start Date End Date Code Code Syst em Smoking History Never smoker (Never Smoked) 061678642 SNOMED CT Sex Male Hospital Discharge Instructions [...] Code System No Known Drug Allergies Active 450127459 SNOMED-CT Plan of Treatment PRE-OP TESTING 12/25/2022 Encounters Encounter Diagnosis Start Date Code Code Sys tem Encounter for other preprocedural examination 12/26/19 SNOMED-CT Personal Care Team Section Performer Name Performer Role Active Date Inactive Da te
--- OUTSIDE RECORDS SUMMARY | 2024-06-10 19:35 | XMS_ITS ---
Author Organization Unknown Address [address] [place] [phone] Phone Care Team Providers Care Rubber Printing Machine Operator Name Role Phone SHAUNA Cuellar Attending Unavailable KAIT HERNANDEZ Primary Unavailable Results ALBUMIN* - Collect Date/Time : 02/27/2023 11:57 [facility] ID: [id number] [address] [place] [address], [address] LOINC: 1751-7 Test Value Unit Reference Range Code Code System Flag ALBUMIN 3.7 gm/dL L=3.4 H=5.0 1751-7 LOINC HEMOGLOBIN A1C* - Collect Da te/Time: 02/27/2023 11:57 [facility] ID: [id number] [address] [place] [address], [address] LOINC: 4548-4 Test Value Unit Reference Range Code Code System Flag Hgb A1c 6.6 % L=3.8 H=5.7 4548-4 LOINC H MEAN BLOOD GLUCOSE 134 mg/dL 88024-9 LOINC Social History Type Status Start Date End Date Code Code Syst em Smoking History Never smoker (Never Smoked) 028778306 SNOMED CT Sex Male Hospital Discharge Instructions [...] Code System No Known Drug Allergies Active 964820151 SNOMED-CT Plan of Treatment PRE-OP TESTING 12/25/2022 Encounters Encounter Diagnosis Start Date Code Code Sys tem Idiopathic osteoarthritis 02/27/2023 292822758 OMED-CT Personal Care Team Section Performer Name Performer Role Active Date Inactive Da te
--- OUTSIDE RECORDS SUMMARY | 2024-06-10 19:35 | XMS_ITS ---
Author Organization Unknown Address [address] [place] [address] [phone] Phone Care Team Providers Care Oil Dispenser Name Role Phone DOMINGO John Attending Unavailable KAIT HERNANDEZ Primary Unavailable Social History Type Status Start Date End Date Code Code Syst em Smoking History Never smoker (Never Smoked) 136698156 SNOMED CT Sex Male Hospital Discharge Instructions [...] Code System No Known Drug Allergies Active 182702471 SNOMED-CT Plan of Treatment PRE-OP TESTING 12/25/2022 Encounters Encounter Diagnosis Start Date Code Code Sys tem Follow-up orthopedic assessment 01/12/2023 [id number] SNOMED-CT Personal Care Team Section Performer Name Performer Role Active Date Inactive Da te
--- OUTSIDE RECORDS SUMMARY | 2024-06-10 19:35 | XMS_ITS ---
Author Organization Unknown Address [address] [place] [address] [phone] Phone Care Team Providers Care Lot Attendant Name Role Phone DOMINGO John Attending Unavailable KAIT HERNANDEZ Primary Unavailable Social History Type Status Start Date End Date Code Code Syst em Smoking History Never smoker (Never Smoked) 347516158 SNOMED CT Sex Male Hospital Discharge Instructions [...] Code System No Known Drug Allergies Active 609314950 SNOMED-CT Plan of Treatment PRE-OP TESTING 12/25/2022 Encounters Encounter Diagnosis Start Date Code Code Sys tem Follow-up orthopedic assessment 02/27/2023 205042858 SNOMED-CT Personal Care Team Section Performer Name Performer Role Active Date Inactive Da te
--- OUTSIDE RECORDS SUMMARY | 2024-06-10 19:35 | XMS_ITS ---
Author Organization Unknown Address [address] [place] [address] [phone] Phone Care Team Providers Care Automatic Maintainer Name Role Phone DEREK Coffey Attending Unavailable KAIT HERNANDEZ Primary Unavailable Results XR KNEE 4V LT* - Completed: 09/19/2022 11:12 LOINC: [place], [place] [address] PACS SALES CLERK REPORT Patient Name: DIANDRA YANCEY MRN: Sex: : Age: [id number] M 1955 66 Account: Accession: Admit: StayType: [id number] 09/19/2022 CLINIC Ordered: Order ID: Submitted: Ordering Provider: 09/19/2022 11:02 [id number] DANI GREEN Completed: Technologist: Resulted: 09/19/2022 11:12 ALEXYS 09/19/2022 13:54 Study Description: XR KNEE 4V LT* Study Reason: Pain 2D digital imaging was performed. COMPARISON: No exams were available for comparison? FINDINGS: There is no evidence of acute fracture although there is a joint effusion filling the suprapatellar bursa. No. On the weightbearing view there is advanced narrowing of the medial compartment and marginal osteophytes in the medial compartment noted. No significant narrowing of the lateral compartment on the weightbearing view. There is a large calcified density within the anterior lateral joint space which measures 1.4 x 1.0 cm. This is corticated. It is in the lateral aspect of the Hoffa intra-articular fat. On the merchant's view there is a corticated calcification off the medial aspect of the patella. This does not have the appearance of an acute fracture fragment. In addition, there is prominent osteophyte the superior aspect of the patella and moderate sized osteophyte of the inferior aspect of the patella. Calcified fabella noted posteriorly. IMPRESSION: Degenerative changes as is above. In addition there is a calcified body in the anterior lateral aspect of the joint measuring 14 x 10 mm. Joint effusion also noted Report Digitally Signed by Min Upton on 09/19/2022 01:54 PM EST XR KNEE 4V RT* - Completed: 09/19/2022 11:12 LOINC: [facility] [place], [place] [address] PACS SALES CLERK REPORT Patient Name: DIANDRA YANCEY MRN: Sex: : Age: [id number] M 1955 66 Account: Accession: Admit: StayType: [id number] 09/19/2022 CLINIC Ordered: Order ID: Submitted: Ordering Provider: 09/19/2022 11:02 [id number] DANI HICKYE Completed: Technologist: Resulted: 09/19/2022 11:12 JESSIE 09/19/2022 13:50 Study Description: XR KNEE 4V RT* Study Reason: Pain 2D digital imaging was performed. COMPARISON: No exams were available for comparison? FINDINGS: 4 views: There is no evidence of fracture but there is a joint effusion noted. There is significant narrowing of the medial, best seen on the weightbearing view. Also marginal osteophyte evident of the medial compartment. Lateral compartment exhibits normal height. Moderate degenerative changes are evident in the patellofemoral compartment. This is more evident in the medial than the lateral asked the patellofemoral compartment. No osteochondral defects evident. No significant osseous lesions. IMPRESSION: Degenerative changes in the medial patellofemoral, knees, as described above. Report Digitally Signed by Min Upton on 09/19/2022 01:50 PM EST Social History Type Status Start Date End Date Code Code Syst em Smoking History Never smoker (Never Smoked) 409951245 SNEstimize CT Sex Male Hospital Discharge Instructions Should [...] Code System No Known Drug Allergies Active 169668122 SNOMED-CT Plan of Treatment PRE-OP TESTING 12/25/2022 Encounters Encounter Diagnosis Start Date Code Code Sys tem Idiopathic osteoarthritis 09/19/2022 958682939 SN OMED-CT Personal Care Team Section Performer Name Performer Role Active Date Inactive Da te
--- OUTSIDE RECORDS SUMMARY | 2024-06-10 19:35 | XMS_ITS ---
Author Organization Unknown Address [address] [place] [address] [phone] Phone Care Team Providers Care Engineering Laboratory Technician Name Role Phone DOMINGO John Attending Unavailable KAIT HERNANDEZ Primary Unavailable Results XR FOOT 3V RT* - Completed: 12/18/2022 08:57 LOINC: [place], [place] [address] PACS SEAT INSTALLER REPORT Patient Name: DIANDRA YANCEY MRN: Sex: : Age: [id number] M 1955 67 Account: Accession: Admit: StayType: [id number] 12/18/2022 CLINIC Ordered: Order ID: Submitted: Ordering Provider: 12/18/2022 08:10 [id number] [facility] [address] Completed: Technologist: Resulted: 12/18/2022 08:57 [facility] 12/18/2022 09:55 Study Description: XR FOOT 3V RT Study Reason: RT FOOT PAIN Views: 3 COMPARISON: None FINDINGS: BONES: No acute fracture is present. No bony destructive lesion is seen. Prominent heel spurs. JOINTS: No dislocation present. Severe degenerative changes of the first MTP joint. There is flattening of the first metatarsal head and prominent periarticular spurring as well as subchondral cyst formation and sclerosis. Mild degenerative changes also noted at the in the intertarsal and tarsometatarsal regions. SOFT TISSUE: Calcification in the plantar fascia and distal calcaneus. Calcifications in the dorsal soft tissues. IMPRESSION: Severe degenerative changes of the first MTP joint. Heel spurs and Achilles tendon calcifications. Plantar fascial calcification Report Digitally Signed by Camila Huggins on 12/18/2022 09:55 AM EDT Social History Type Status Start Date End Date Code Code Syst em Smoking History Never smoker (Never Smoked) 824664843 [facility] CT Sex Male Hospital Discharge Instructions Should [...] Code System No Known Drug Allergies Active 439601209 [employer] Plan of Treatment PRE-OP TESTING 12/25/2022 Encounters Encounter Diagnosis Start Date Code Code Sys tem 12/18/2022 [id number] [employer]-CT Personal Care Team Section Performer Name Performer Role Active Date Inactive Da te
--- OUTSIDE RECORDS SUMMARY | 2024-06-10 19:35 | XMS_ITS ---
Author Organization Unknown Address [address] [place] [address] [phone] Phone Care Team Providers Care Film Reproducer Name Role Phone DOMINGO John Attending Unavailable KAIT HERNANDEZ Primary Unavailable Social History Type Status Start Date End Date Code Code Syst em Smoking History Never smoker (Never Smoked) 573740056 SNOMED CT Sex Male Hospital Discharge Instructions [...] Code System No Known Drug Allergies Active 111938963 SNOMED-CT Plan of Treatment PRE-OP TESTING 12/25/2022 Encounters Encounter Diagnosis Start Date Code Code Sys tem Follow-up orthopedic assessment 02/13/2023 832250435 SNOMED-CT Personal Care Team Section Performer Name Performer Role Active Date Inactive Da te
--- OUTSIDE RECORDS SUMMARY | 2024-06-10 19:35 | XMS_ITS ---
Author Organization Unknown Address [address] [place] [address] [phone] Phone Care Team Providers Care Casket Trimmer Name Role Phone DOMINGO John Attending Unavailable KAIT HERNANDEZ Primary Unavailable Results XR C-ARM FOOT 3V RT NO CHARG E - Completed: 01/02/2023 12:48 LOINC: [facility] [place], [place] [address] PACS POWER MARKETER REPORT Patient Name: DIANDRA YANCEY MRN: Sex: : Age: [id number] M 1955 67 Account: Accession: Admit: StayType: [id number] 01/02/2023 O/P Ordered: Order ID: Submitted: Ordering Provider: 01/02/2023 02:[id number] Completed: Technologist: Resulted: 01/02/2023 12:48 MLL 01/02/2023 13:09 Study Description:XR C-ARM FOOT 3V RT NO CHARGE Study Reason: RT 1ST MTP CHEILECTOMY Comparison: Fluoroscopy was provided for the referring physician. 2D and real time imaging was performed. Please see procedure note for details. Fluoroscopy time:1.56sec Ka,r: 0.038 mGy Report Digitally Signed by Camila Huggins on 01/02/2023 01:09 PM EDT Social History Type Status Start Date End Date Code Code Syst em Smoking History Never smoker (Never Smoked) 334687059 SNOMED CT Sex Male Vital Signs Vital Sign Value Unit Morris Value Morris Unit Date/Time Recent/Initial? Code Code System Body Mass Index 39.68 kg/m2 12/28/2022 14:23 Initial 41378- 5 LOINC Body Surface Area 2.28 m2 12/28/2022 14:23 Initial 3140-1 LOINC Height 167.6400 cm 66.00 in 12/28/2022 14:23 Initial 8302-2 LOINC Weight 111.50 kg 245.82 lbs 12/28/2022 14:23 Initial 86851- 7 [facility] Hospital Discharge Instructions Should you have any questions prior to discharge, please contact a member of your healthcare team. If you have left the hospital and have any questions, please contact your primary care physician. Reason For Referral No Data Found Procedures Procedure Name Date Status Code Code Syste m Hallux Rigidus w/Cheilectomy 1st MP Jt w/o Implt 01/02/2023 completed 14551 CPT Allergies and Adverse Reactions Allergy Substance Reaction Severity Start Date Concern Status Co de Code System No Known Drug Allergies Active 520145532 SNOMED-CT Plan of Treatment PRE-OP TESTING 12/25/2022 Encounters Encounter Diagnosis Start Date Code Code Sys tem Hallux rigidus, right foot 01/02/2023 S NOMED-CT Personal Care Team Section Performer Name Performer Role Active Date Inactive Da te
--- OUTSIDE RECORDS SUMMARY | 2024-06-10 19:35 | XMS_ITS | Data Portability ---
Author Organization [place] - [facility], [facility] Address [address] [place] [address] Assessment Encounter Date Assessment Date Assessment LastModified by Organization Details LastModified Time 12/12/2023 12/12/2023 68-year-old male with new diagnosis of diabetes (7 months ago), has tolerated all of his medications, blood pressure is at goal, home fingerstick's generally less than 120. No POC A1c available today. He did make some dietary changes but he does continue to eat high volume, high carb high junk food high convenience store foods. [email or web address] Not available 12/12/2023 17:18:22 04/09/2024 04/09/2024 Pt with severe pruritis, likely 2ry to known atopic dermatitis. Discussed this is the itch that rashes and that thick emollients will be the way to prevent exacerbations. Due tp severity of pruritis interfering with ADLs (couldn't go ot work today) and diffuse nature of his itching, will begin a medrol dose darin. Pt has well controlled DM2, and has [...] with Derm [email or web address] Not available 04/09/2024 10:13:45 05/15/2024 05/15/2024 The clinician assessed that the [...] during hot weather and when working outdoors. [email or web address] Not available 05/16/2024 07:22:46 Plan of Treatment Reminders Order Date Submit Date Provider Last Modified By Organization Details Last Modified Time Details Appointments Follow Up 30 2023 04:30P M Not available Not available Not available Lab CMP, serum or plasma 2023 024 [facility] (Registration ), [address] [place] [address] [place], [address], 12/12/2023 21:49:18 lipid panel, serum [email or web address] [facility] (Registration ), [address] [place] [address] [place], [address], 12/19/2023 06:54:09 HbA1c (hemoglob in A1c), blood [address] [facility] (Registration ), [address] [place] [address] [place], [address], 12/19/2023 06:54:16 hemoglobi n A1C, fingersti ck 2023 024 [facility], [address] [place] [address], [address], 03/19/2024 18:31:34 lipid panel, blood 2023 024 [facility], [address] [place] [address], [phone], 03/19/2024 18:31:34 glucose, fingersti ck, blood 2023 024 [email or web address] [facility], [address] [place] [address], [phone], 05/16/2024 07:22:48 Referral None recorded. Procedures None recorded. Surgeries None recorded. Imaging None recorded. Medication Orders sildenafi l 50 mg tablet 2023 024 [facility] #[id number], [address], [place], [place], [id number], 12/12/2023 17:50:21 Ozempic 1 mg/dose (4 mg/3 mL) subcutane ous pen injector 2023 024 [facility] #[id number], [address], [place], [place], [phone], 03/19/2024 18:13:40 Flonase Allergy Relief 50 mcg/actua tion nasal spray,ayad pension 2023 024 [facility] #[id number], [address], [place], [place], [id number], 03/19/2024 19:06:24 Pataday Once Daily Relief 0.2 % eye drops 2023 [facility] #[id number], [address], [place], [id number], 03/19/2024 19:06:24 Victoza 3-Darin 0.6 mg/0.1 mL (18 mg/3 mL) subcutane ous pen injector [address], [address] [place] [address], [facility], [place], [address], 05/19/2024 13:30:17 atorvasta tin 80 mg tablet 2023 [facility] #38170, [address], [place], [id number], 03/19/2024 19:06:27 methylpre dnisolone 4 mg tablets in a dose pack 2023 [facility] #08290, [address], [place], [place], [id number], 05/15/2024 14:56:00 hydroxyzi ne HCl 25 mg tablet 2023 [facility] #56339, [address], [place], [place], [id number], 06/02/2024 17:20:01 prednison e 20 mg tablet 2023 [facility] #[id number], [address], [place], [place], [id number], 06/02/2024 17:20:00 Patient TargetsNo targets recorded. Patient Instructions Encounter Date Encounter Id Patient Instructions Last Modified By Organization Details Last Modified Time 12/12/2023 [id number] get on the fortino l tonight and i will send you your labs on it tomorrow INCREASE you Ozempic to 1 mg weekly. Keep checking your blood pressures and do it for the 2 weeks prior to your next appointment and bring to your next appointment. continue your HEALTHY diabetic diet and exercise - pack a go-bag with healthy snacks keep skin GREASY, aquaphor or eucerin or vaseline - call Derm for follow up appt continue all meds and I will see you in 3 months for repeat Try the sildenafil, start with 1/2 tablet, give 1/2 tablet does not help, you can use a whole tablet. use about an hour prior to activity, remember it can cause dizziness and headache. Drink a lot of water if you take it, and take Tylenol/acetamino phen if you get a headache. [email or web address] Not available 12/12/2023 17:14:13 03/19/2024 [id number] INCREASDE your atorvastatin to 3 pills every day and I will send you a RX for a new dose - 80 daily (take one 80 mg pill every night)) CHANGE Ozempic to Victoza from [facility] 1.2 mg every day - CALL us if they dont get it to you continue your HEALTHY diabetic diet and exercise - pack a go-bag with healthy snacks continue all meds and I will see you in 3 months for repeat shoulder and neck stretches - LMK if not getting better! [email or web address] Not available 03/19/2024 18:30:15 05/15/2024 [id number] diet [email or web address] Not available 06/2024 07:23:57 exercise [email or web address] Not available 05/16 07:23:57 - Continue takkenya g diabetes medications, including metformin and Victoza [...] Abnormal Flag Note LastModifiedBy Organization Detail LastModifiedTime 12/12/19 24 12/12/2023 HEMOG LOBIN A1C hemoglobin A1C 5.8 % <5.7 high Refer ence Range s <5.7 Lyla l 5.7-6 .4% Predi abete s 6.5% or great er Diagn ostic for diabe jairo (if confi rmed) Refer ences : 1. Ameri can Diabe jairo Assoc iatio n. Clas sific ation and Diagn osis of Diabe jairo. Diabe jairo Care 2019 Oct; 2(Sup pleme nt 1):S1 3-s28 . Not Available [address] [place], [address] 12/12/2023 21:37:18 12/12/19 24 12/12/2023 COMPR EHENS SHANTANU METAB OLIC PANEL calcium 9.4 mg/dL 8.5-10 .1 normal Not Available [address] [place], [address] 12/12/2023 21:49:18 12/12/19 24 12/12/2023 COMPR EHENS SHANTANU METAB OLIC PANEL glucose 92 mg/dL 74-106 normal Not Available Suzette gay [address] [place], [address] 12/12/2023 21:49:18 12/12/19 24 12/12/2023 COMPR EHENS SHANTANU METAB OLIC PANEL BUN 18 mg/dL 7-18 normal Not Available Suzette [address] [facility] [place], [address] 12/12/2023 21:49:18 12/12/19 24 12/12/2023 COMPR EHENS SHANTANU METAB OLIC PANEL creatinine 0.9 mg/dL 0.70-1 .30 normal Not Available [address] [place], [address] 12/12/2023 21:49:18 12/12/19 24 12/12/2023 COMPR EHENS SHANTANU METAB OLIC PANEL estimated GFR 93.03 mL/min /1.73m 2 The eGFR is calcu lated from a serum creat inine using the CKD-E PI 2020 equat ion. Other varia bles requi red for the equat ion are gende r and age; this equat ion does not inclu de a race coeff icien t. This equat ion has simil ar overa ll perfo rmanc e to previ ous equat ions excep t value s may diffe r, in parti cular , in patie nts with highe r value s of eGFR and young er-ag ed adult s. Not Available [address] [place] [place], [address] 12/12/2023 21:49:18 12/12/19 24 12/12/2023 COMPR EHENS SHANTANU METAB OLIC PANEL total protein 6.9 g/dL 6.4-8. 2 normal Not Available [address] [place] [place], [address] 12/12/2023 21:49:18 12/12/19 24 12/12/2023 COMPR EHENS SHANTANU METAB OLIC PANEL albumin 3.6 g/dL 3.4-5. 0 normal Not Available [address] [place] [place], [address] 12/12/2023 21:49:18 12/12/19 24 12/12/2023 COMPR EHENS SHANTANU METAB OLIC PANEL bilirubin, total 0.6 mg/dL 0.2-1. 0 normal Not Available [address] [place] [place], [address] 12/12/2023 21:49:18 12/12/19 24 12/12/2023 COMPR EHENS SHANTANU METAB OLIC PANEL alk phos 87 U/L 46-116 normal Not Available [address] [place], [address] 12/12/2023 21:49:18 12/12/19 24 12/12/2023 COMPR EHENS SHANTANU METAB OLIC PANEL sodium 139 mmol/ L 136-14 5 normal Not Available [address] [place], [address] 12/12/2023 21:49:18 12/12/19 24 12/12/2023 COMPR EHENS SHANTANU METAB OLIC PANEL potassium 4.4 mmol/ L 3.5-5. 1 normal Not Available [address] [place] [place], [address] 12/12/2023 21:49:18 12/12/19 24 12/12/2023 COMPR EHENS SHANTANU METAB OLIC PANEL chloride 102 mmol/ L 98-107 normal Not Available [address] [place] [place], [address] 12/12/2023 21:49:18 12/12/19 24 12/12/2023 COMPR EHENS SHANTANU METAB OLIC PANEL CO2 29.3 mmol/ L 21.0-3 2.0 normal Not Available [address] [place] [place], [address] 12/12/2023 21:49:18 12/12/19 24 12/12/2023 COMPR EHENS SHANTANU METAB OLIC PANEL anion gap 7.7 mmol/ L 3-11 normal Not Available [address] [place] [place], [address] 12/12/2023 21:49:18 12/12/19 24 12/12/2023 COMPR EHENS SHANTANU METAB OLIC PANEL AST 20 U/L 15-37 normal Not Available Suzette [address] [place], [address] 12/12/2023 21:49:18 12/12/19 24 12/12/2023 COMPR EHENS SAHNTANU METAB OLIC PANEL ALT 24 U/L 16-63 normal Not Available Suzette [address] [place], [address] 12/12/2023 21:49:18 12/12/19 24 12/12/2023 LIPID 2 cholesterol 191 mg/dL <200 Not Available [address] [place], [address] 12/12/2023 21:49:19 12/12/19 24 12/12/2023 LIPID 2 triglyceride 129 mg/dL <150 Not Available [address] [place], [address] 12/12/2023 21:49:19 12/12/19 24 12/12/2023 LIPID 2 HDL cholesterol 57 mg/dL 40-60 Not Available [address] [place], [address] 12/12/2023 21:49:19 12/12/19 24 12/12/2023 LIPID 2 calculated LDL 109 mg/dL <100 high Natio nal Mila stero l Educa tion Progr am (NCEP -ATPI II) class ifica tions : Mila stero l <200 mg/dL Roberto able Mila stero l 200-2 39 mg/dL Borde rline High Mila stero l >or=2 40 mg/dL High HDL <40 mg/dL Low HDL >or=6 0 mg/dL High LDL <100 mg/dL Optim al LDL 100-1 29 mg/dL Near Optim al/Ab ove Optim al LDL 130-1 59 mg/dL Borde rline High LDL 160-1 89 mg/dL High LDL >or=1 90 mg/dL Very High *The above refer ence range is for adult s 18 years or older . Not Available [facility] [address] [facility] [place], [address] 12/12/2023 21:49:19 03/19/20 24 03/19/2024 lipid panel , blood Total Cholesterol: 162 Not Available [address], [address], 03/19/2024 18:17:41 03/19/20 24 03/19/2024 lipid panel , blood HDL: 40 Not Available [address], [address], 03/19/2024 18:17:41 03/19/20 24 03/19/2024 lipid panel , blood LDL: 92 Not Available [address], [address], 03/19/2024 18:17:41 03/19/20 24 03/19/2024 lipid panel , blood Non-HDL: 122 Not Available [address], [address], 03/19/2024 18:17:41 03/19/20 24 03/19/2024 lipid panel , blood Triglyceride s: 151 Not Available [address], [address], 03/19/2024 18:17:41 03/19/20 24 03/19/2024 lipid panel , blood TC/HDL: 4.1 Not Available [address], [address], 03/19/2024 18:17:41 03/19/20 24 03/19/2024 hemog lobin A1C, daniela rstic k hemoglobin A1C 5.4 % <5.7 Not Available [address], [address], 03/19/2024 18:16:32 05/15/20 24 05/15/2024 gluco se, daniela rstic k, blood glucose 111 mg/dL 70-100 Not Available [address], [address], 05/15/2024 15:11:25 Result Notes None recorded. Problems Name Problem SNOMED Code Status Onset Date Resolution Date Notes Provider Name and Address Organization Details Recorded Time Essterry l hyperten matthew 50776137 Active 2022 [facility] 4 14:47:20 Osteoart hritis of knee 554045504 Active 2022 Problem Code: M17.9; Problem Code Type: ICD-10; [facility] 4 14:47:50 Hyperlip idemia 29214315 Active 2022 [facility] 4 14:47:29 Acquired right hallux rigidus 93658093653 4100 Active 2022 [facility] 4 14:46:23 Pain of joint of knee 7005152383 Active 2022 Bilatera l [facility] 4 14:48:08 Atopic dermatit is 71888278 Active 2022 Mariann Finley [facility] 4 14:46:42 Cardiome leesa 9459265 Active 2022 --noted on CXR Mariann Finley [facility] 4 14:46:59 Type 2 diabetes mellitus without complica tion 111446206 [facility] 4 14:49:19 Screenin g for malignan t neoplasm of prostate Active 2022 Problem Code: Z12.5; Problem Code Type: ICD-10; [facility] 4 14:48:30 Severe obesity 03045579961 104 Active 2022 (BMI > = 40) [facility] 4 14:49:07 Screenin g for malignan t neoplasm of colon Completed 202206/08/2023 Problem Code: Z12.11; Problem Code Type: ICD-10; Not Available [facility] 3 05:48:58 Adult health examinat ion Completed 202212/11/2023 Problem Code: Z00.00; Problem Code Type: ICD-10; [facility] 4 14:46:27 Dehiscen ce of external surgical incision wound 53829455218 9108 Completed 202205/09/2023 Problem Code: T81.31xA ; Problem Code Type: ICD-10; Not Available [facility] 3 05:48:58 Urine microalb umin detected 379818517 Active 2022 MIQUEL MARTIN [address], [place], [address] , [facility] 3 16:50:23 Erectile dysfunct ion 597400457 Active [address], [place], [address] , [facility] 4 17:12:24 Allergic rhinitis 16459510 Active [address], [place], [address] , [facility] 4 18:56:22 Obesity 828022570 Active [address], [place], [address] , [facility] 4 07:23:26 Problem Notes None recorded. Medical [...] Details Last Updated DateTime 4 167.64 cm 39.4 kg/m2 360993. 54 g 98.1 [degF] 96 % 96 % 75 /min 142 mm[Hg] 90 mm[Hg] HEIDI SOFIA MA [facility] 4 16:49:42 Date Recorded Body height Body mass index (BMI) Body weight Body temperature Oxygen saturation Oxygen saturation in Arterial blood by Pulse oximetry Heart rate Systolic blood pressure Diastolic blood pressure Provider Name and Address Organization Details Last Updated DateTime 4 167.64 cm 39.2 kg/m2 575996. 95 g 97.4 [degF] 96 % 96 % 51 /min 138 mm[Hg] 92 mm[Hg] HEIDI SOFIA MA [facility] 4 18:02:31 Date Recorded Body height Body mass index (BMI) Body weight Oxygen saturation Oxygen saturation in Arterial blood by Pulse oximetry Heart rate Body temperature Systolic blood pressure Diastolic blood pressure Provider Name and Address Organization Details Last Updated DateTime 4 167.64 cm 38.9 kg/m2 737953. 76 g 95 % 95 % 72 /min 97.8 [degF] 142 mm[Hg] 82 mm[Hg] MILES MACKENZIE RN [facility] 4 09:16:49 Date Recorded Body height Body mass index (BMI) Body weight Body temperature Oxygen saturation Oxygen saturation in Arterial blood by Pulse oximetry Heart rate Systolic blood pressure Diastolic blood pressure Provider Name and Address Organization Details Last Updated DateTime 4 167.64 cm 39.8 kg/m2 600575. 6 g 98.1 [degF] 97 % 97 % 68 /min 142 mm[Hg] 96 mm[Hg] YUMIKO LARKIN RN [facility] 15:01:09 Date Recorded Body height Body mass index (BMI) Body weight Body temperature Oxygen saturation Oxygen saturation in Arterial blood by Pulse oximetry Heart rate Respiratory rate Systolic blood pressure Diastolic blood pressure Provider Name and Address Organization Details Last Updated DateTime 167.64 cm 39.7 kg/m2 799856. 72 g 98.4 [degF] 96 % 96 % 87 /min 17 /min 153 mm[Hg] 89 mm[Hg] LARS SCHERER MA [facility] 16:04:11 Social History Question Answer Notes LastModified by Organizat ion Details LastModified Time Tobacco Smoking Status Never Smoker RINKU SOFIA MA [facility], [facility] 12/12/2023 16:44:25 What Was The Date Of Your Most Recent Tobacco Screening? 04/09/2024 [email or web address] Information not available 04/09/2024 Has Tobacco Cessation Counseling Been Provided? No Information not available 05/15/2024 Do You Or Have You Ever Used Any Other Forms Of Tobacco Or Nicotine? No Information not available 05/15/2024 Sex: Male Functional Status None recorded. Mental Status None recorded. Family History Nothing Reported Notes:*Problem: Mother: dece ased age 83 heart disease, Pancreatic Cancer. Medical History No medical history recorded. Immunizations Vaccine Type Date Status Provider Name and Address Organization Details Recorded Time Tdap 08/22/2021 completed Not Available [facility] 06:09:43 COVID-19, mRNA, LNP-S, PF, 100 mcg/0.5mL dose or 50 mcg/0.25mL dose 12/15/2020 completed Not Available [facility] 08/17/2023 06:09:43 COVID-19, mRNA, LNP-S, PF, 100 mcg/0.5mL dose or 50 mcg/0.25mL dose 01/12/2021 completed Not Available [facility] 08/17/2023 06:09:43 Pneumococcal conjugate PCV20, polysaccharide [id number] conjugate, adjuvant, PF 05/09/2023 completed Not Available [facility] 08/17/2023 06:09:43 COVID-19, mRNA, LNP-S, bivalent, PF, 30 mcg/0.3 mL dose 07/28/2022 completed Not Available [facility] 08/17/20 06:09:43 COVID-19, mRNA, LNP-S, PF, erin-sucrose, 30 mcg/0.3 mL 09/12/2023 completed KATHERYN RICHMOND, [facility] 09/19/2023 11:57:43 Influenza, high-dose, quadrivalent, PF 09/12/2023 completed KATHERYN RICHMOND, [facility] 09/19/2023 11:57:43 Past Encounters Encounter ID Performer Location Encounter Start Date Encounter Closed Date Diagnosis/Indication Diagnosis SNOMED-CT Code Diagnosis ICD10 Code [id number] YUMIKO LARKIN RN [address] [address] 09/12/2023 15:40:03 09/12/2023 16:57:37 Type 2 diabetes mellitus without complication 576886320 E11.9 Atopic dermatitis 823590 01 L20.9 Active or passive immunization 354779308 Z23 [id number] GOLDEN PANG [address] [address] 12/12/2023 16:40:18 12/12/2023 17:24:36 Type 2 diabetes mellitus without complication 055478698 E11.9 Erectile dysfunction 860 304164 F52.21 [id number] GOLDEN PANG [address] [address] 03/19/2024 17:36:10 03/19/2024 18:32:58 Type 2 diabetes mellitus without complication 007577207 E11.9 Hyperlipidemia 30223799 E78.5 Allergic rhinitis 556284 04 J30.9 [id number] Nia Medrano [address] [address] 04/09/2024 09:05:30 04/09/2024 09:41:45 Atopic dermatitis 98882673 L20.9 Itching of skin 02525050 0 L29.9 [id number] MEGHANA DAVIES, [address] [address] 05/15/2024 14:48:08 05/15/2024 15:21:58 Type 2 diabetes mellitus without complication 697301439 E11.9 Essential hypertension 98792961 I10 Obesity 281435523 E66.9 [id number] GIORGIO PHAM, [address],[facility] [address] [place] [address] 06/02/2024 15:16:51 06/02/2024 17:21:01 Atopic dermatitis 17198996 L20.9 Health Concerns Section Related Observation LastModified by Organization Detai ls LastModified Time None Recorded Concern Status LastModified by Organization Details LastModified Time None Recorded Advance Directives Directive None Recorded Payers Encounter Date Sequence Insurance Name Policy Number Policy Esparza Covered Member ID Esparza Member ID Guarantor Name 12/12/2023 1 [facility] (MEDICARE REPLACEMENT/A DVANTAGE - PPO) [id number] Tomy F Orzolek [id number] Tomy F Orzolek 03/19/2024 1 [facility] (MEDICARE REPLACEMENT/A DVANTAGE - PPO) [id number] Tomy F Orzolek [id number] Tomy F Orzolek 04/09/2024 1 [facility] (MEDICARE REPLACEMENT/A DVANTAGE - PPO) [id number] Tomy F Orzolek [id number] Tomy F Orzolek 05/15/2024 1 [facility] (MEDICARE REPLACEMENT/A DVANTAGE - PPO) [id number] Tomy F Orzolek [id number] Tomy F Orzolek 06/02/2024 1 [facility] (MEDICARE REPLACEMENT/A DVANTAGE - PPO) [id number] Tomy F Orzolek [id number] Tomy Wan Notes Date Note Type Note Provider Name and Address Organization Details Recorded Time 12/12/2023 text/html HPI Notes: louis w-up on his diabetes today. New diagnosis last May. Incrementally started Ozempic, losartan, metformin, atorvastatin. Tolerating these well without any medication adverse effect Home blood sugars: Checking daily - sometimes AM /PM lowest - 74 highest was 200s but this was after knee injection - prior to that - 120s Diabetic diet: Usually follows this but lots of junk food lately, no intentional exercise but physically active some days for work BP -124/x no lows checks wt every other day working in [employer] #wants to talk about down there about 6 months of lower quality erections, he does get erections but not enough for penetration many times. He denies any pelvic injury, no discharge, pain, no new sexual partners. No change in urination, no difficulty starting or stopping stream, no dysuria or nocturia MIQUEL MARTIN [address], [place], [address], [facility]. 12/12/2023 17:50:16 03/19/2024 text/html HPI Notes: louis w-up on his diabetes today. New diagnosis May 2023. Incrementally started Ozempic, losartan, metformin, atorvastatin. Notes a little bit of abdominal discomfort the day after Ozempic. last a1c 5.8 in December Home blood sugars: Checking daily - sometimes AM /PM lowest - 82 Highs 121, no very lows, no very highs highest was 136 Diabetic diet: Usually follows this but lots of junk food lately, no intentional exercise but physically active some days for work BP -128/71 130/80 no lows working in [employer] after last visit doubled statin for LDL > 100 seasonal allergies - itchy eyes and throat, not better with benadryl AND claritin MIQUEL MARTIN [address], [place], [address], [facility]. 03/19/2024 19:07:01 04/09/2024 text/html HPI Notes: Pt is a [...] irritant exposure. Hx DM2, generally well controlled. Nia Medrano [place], [place] - [facility]. 04/09/2024 10:14:32 05/15/2024 text/html HPI Notes: 68-year-old male patient [...] water, especially during hot weather. MEGHANA DAVIES, [employer] [address], [place], [address], [facility], [facility]. 05/16/2024 07:24:03 06/02/2024 text/html HPI Notes: Brayden mills presents [...] close contact with similar rash. MIQUEL KERR [address], [place], [address], [facility], [facility]. 06/03/2024 08:56:53
--- OUTSIDE RECORDS SUMMARY | 2024-06-10 19:35 | XMS_ITS ---
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
--- OUTSIDE RECORDS SUMMARY | 2024-06-10 19:35 | XMS_ITS | Continuity of Care Document ---
Author Organization [place] - [facility], [facility] Address [address] [place] [address] Assessment No assessment recorded. Plan of Treatment Reminders Order Date Submit Date Provider Last Modified By Organization Details Last Modified Time Details Appointments Follow Up 30 2023 04:30P M Not available Not available Not available Lab hemoglobi n A1C, fingersti ck 2023 024 [facility], [address] [place] [address], [phone], 03/19/2024 18:31:34 lipid panel, blood 2023 024 [facility], [address] [place] [address], [id number], 03/19/2024 18:31:34 Referral None recorded. Procedures None recorded. Surgeries None recorded. Imaging None recorded. Medication Orders Flonase Allergy Relief 50 mcg/actua tion nasal spray,ayad pension 2023 024 [id number], [address], [place], [place], [id number], 03/19/2024 19:06:24 Pataday Once Daily Relief 0.2 % eye drops 2023 024 [facility] #[id number], [address], [place], [place], [phone], 03/19/2024 19:06:24 Victoza 3-Darin 0.6 mg/0.1 mL (18 mg/3 mL) subcutane ous pen injector 2023 024 [email or web address] [facility], [address] [place] [address], [address], [place], [address], 05/19/2024 13:30:17 atorvasta tin 80 mg tablet 2023 024 [facility] #[id number], [address], [place], [place], [id number], 03/19/2024 19:06:27 Patient TargetsNo targets recorded. Patient Instructions Encounter Date Encounter Id Patient Instructions Last Modified By Organization Details Last Modified Time 03/19/2024 [id number] INCREASDE your atorvastatin to 3 pills every day and I will send you a RX for a new dose - 80 daily (take one 80 mg pill every night)) CHANGE Ozempic to Victoza from CHP 1.2 mg every day - CALL us if they dont get it to you continue your HEALTHY diabetic diet and exercise - pack a go-bag with healthy snacks continue all meds and I will see you in 3 months for repeat shoulder and neck stretches - LMK if not getting better! [email or web address] Not available 03/19/2024 18:30:15 Reason for Referral None Reported. Results Created Date Observation Date Name Description Value Unit Range Abnormal Flag Note LastModifiedBy Organization Detail LastModifiedTime 03/19/2003/19/2024 lipid panel , blood Total Cholesterol: 162 Not Available [facility] [address] [facility], [place], [address], 03/19/2024 18:17:41 03/19/20 24 03/19/2024 lipid panel , blood HDL: 40 Not Available [facility] [address], [place], [address], 03/19/2024 18:17:41 03/19/20 24 03/19/2024 lipid panel , blood LDL: 92 Not Available [address], [address], 03/19/2024 18:17:41 03/19/20 24 03/19/2024 lipid panel , blood Non-HDL: 122 Not Available [address], [address], 03/19/2024 18:17:41 03/19/20 24 03/19/2024 lipid panel , blood Triglyceride s: 151 Not Available [address], [address], 03/19/2024 18:17:41 03/19/20 24 03/19/2024 lipid panel , blood TC/HDL: 4.1 Not Available [address], [address], 03/19/2024 18:17:41 03/19/20 24 03/19/2024 hemog lobin A1C, finge rstic k hemoglobin A1C 5.4 % <5.7 Not Available [address], [address], 03/19/2024 18:16:32 Result Notes None recorded. Problems Name Problem SNOMED Code Status Onset Date Resolution Date Notes Provider Name and Address Organization Details Recorded Time [facility]ustino[facility] james hyperten matthew 52583563 Active 2022 Mariann nagy, [facility]. 14:47:20 Osteoart hritis of knee 997333386 Active 2022 Problem Code: M17.9; Problem Code Type: ICD-10; Mariann nagy, [facility] 14:47:50 Hyperlip idemia 29499497 Active 2022 Mariann [facility] 4 14:47:29 Acquired right hallux rigidus 48466518441 4100 Active 2022 [facility] 4 14:46:23 Pain of joint of knee 3106619759 Active 2022 Bilgrabiela l [facility] 4 14:48:08 Atopic dermatit is 13807976 Active 2022 [facility] 14:46:42 Cardiome leesa 2681553 Active 2022 --noted on CXR [facility] 14:46:59 Type 2 diabetes mellitus without complica tion 690478531 Active 2022 [facility] 14:49:19 Screenin g for malignan t neoplasm of prostate Active 2022 Problem Code: Z12.5; Problem Code Type: ICD-10; [facility] 14:48:30 Severe obesity 20058903401 104 Active 2022 (BMI > = 40) [facility] 14:49:07 Screenin g for malignan t neoplasm of colon Completed 202206/08/2023 Problem Code: Z12.11; Problem Code Type: ICD-10; Not Available [facility] 3 05:48:58 Adult health examinat ion Completed 202212/11/2023 Problem Code: Z00.00; Problem Code Type: ICD-10; [facility] 14:46:27 Dehiscen ce of external surgical incision wound 65917069836 9108 Completed 202205/09/2023 Problem Code: T81.31xA ; Problem Code Type: ICD-10; Not Available [facility] 3 05:48:58 Urine microalb umin detected 744669554 Active [address], [facility] [address] , [facility] 3 16:50:23 Erectile dysfunct ion 446780842 Active [address], [facility] [address] , [facility] 4 17:12:24 Allergic rhinitis 96964611 Active [address], [facility] [address] , [facility] 4 18:56:22 Obesity 291496631 Active [address], [facility] [address] , [facility] 4 07:23:26 Problem Notes None recorded. [...] Updated DateTime 4 167.64 cm 39.2 kg/m2 424754. 95 g 97.4 [degF] 96 % 96 % 51 /min 138 mm[Hg] 92 mm[Hg] HEIDI SOFIA MA [facility] 18:02:31 Social History Question Answer Notes LastModified by Organizat ion Details LastModified Time Tobacco Smoking Status Never Smoker RINKU SOFIA MA null, [facility] 12/12/2023 16:44:25 What Was The Date Of Your Most Recent Tobacco Screening? 04/09/2024 [email or web address] Information not available 04/09/2024 Has Tobacco Cessation Counseling Been Provided? No [email or web address] Information not available 05/15/2024 Do You Or Have You Ever Used Any Other Forms Of Tobacco Or Nicotine? No [email or web address] Information not available 05/15/2024 Sex: Male Functional Status None recorded. Mental Status None recorded. Family History Nothing Reported Notes:*Problem: Mother: dece ased age 83 heart disease, Pancreatic Cancer. Medical History No medical history recorded. Immunizations Vaccine Type Date Status Provider Name and Address Organization Details Recorded Time Tdap 08/22/2021 completed Not Available [facility] 06:09:43 COVID-19, mRNA, LNP-S, PF, 100 mcg/0.5mL dose or 50 mcg/0.25mL dose 12/15/2020 completed Not Available [facility] 08/17/2023 06:09:43 COVID-19, mRNA, LNP-S, PF, 100 mcg/0.5mL dose or 50 mcg/0.25mL dose 01/12/2021 completed Not Available [facility] 08/17/2023 06:09:43 Pneumococcal conjugate PCV20, polysaccharide [id number] conjugate, adjuvant, PF 05/09/2023 completed Not Available [facility] 08/17/2023 06:09:43 COVID-19, mRNA, LNP-S, bivalent, PF, 30 mcg/0.3 mL dose 07/28/2022 completed Not Available [facility] 08/17/20 06:09:43 COVID-19, mRNA, LNP-S, PF, erin-sucrose, 30 mcg/0.3 mL 09/12/2023 completed KATHERYN RICHMOND, [facility] 09/19/2023 11:57:43 Influenza, high-dose, quadrivalent, PF 09/12/2023 completed KATHERYN RICHMOND, [facility] 09/19/2023 11:57:43 Past Encounters Encounter ID Performer Location Encounter Start Date Encounter Closed Date Diagnosis/Indication Diagnosis SNOMED-CT Code Diagnosis ICD10 Code [id number] MIQUEL MARTIN [address] [address] 03/19/2024 17:36:10 03/19/2024 18:32:58 Type 2 diabetes mellitus without complication 129112742 E11.9 Hyperlipidemia 03594416 E78.5 Allergic rhinitis 488143 04 J30.9 Health Concerns Section Related Observation LastModified by Organization Detai ls LastModified Time None Recorded Concern Status LastModified by Organization Details LastModified Time None Recorded Payers Encounter Date Sequence Insurance Name Policy Number Policy Esparza Covered Member ID Esparza Member ID Guarantor Name 03/19/2024 1 [facility] (MEDICARE REPLACEMENT/A DVANTAGE - PPO) [id number] Tomy Wan [id number] Tomy Wan Notes Date Note Type Note Provider Name and Address Organization Details Recorded Time 03/19/2024 text/html HPI Notes: follow-up on his diabetes today. New diagnosis May [...] BP -128/71 130/80 no lows working in [employer] after last visit doubled statin for LDL > 100 seasonal allergies - itchy eyes and throat, not better with benadryl AND claritin GOLDEN PANG, [employer] [address], [place], [address], [place] - [facility]. 03/19/2024 19:07:01
== END 2024-06-10 19:28 | disposition home or self-care (01) ==
LOC: LBO 19:27
PROVIDERS: Visit Provider Physician Assistant
DX: L29.8 Other pruritus (principal)
CPT/HCPCS: 36415; 80048; 80076; 84439; 84443; 85025

== ENCOUNTER 2024-06-18 18:36 | Outpatient (REF) | payer MEDICARE, SELFPAY ==
[2024-06-18 21:20] LABS: COMMENT (LAB VIEW ONLY) 171.25 mg/dL; Microalb ug/mg Crea 5.8 ug/mg Cr
== END 2024-06-18 18:37 | disposition home or self-care (01) ==
LOC: NCHCN 18:36
PROVIDERS: Visit Provider Nurse Practitioner Family
DX: E11.9 Type 2 diabetes mellitus without complications (principal)
CPT/HCPCS: 82043; 82570

== ENCOUNTER 2025-02-03 17:58 | Outpatient (REF) | payer MEDICARE, SELFPAY ==
[2025-02-03 21:50] LABS: Abs Immature Grans 0.09 10^3/uL (0.0-0.06); Absolute Basophil Count 0.11 10^3/uL (0.0-0.2); Absolute Eosinophil Count 0.75 10^3/uL (0.0-0.7); Absolute Lymphocyte Count 1.82 10^3/uL (1.2-3.4); Absolute Monocyte Count 0.83 10^3/uL (0.1-0.8); Absolute Neutrophil Count 7.59 10^3/uL (1.2-6.7); Eosinophils % 6.7 %; HCT 50.4 % (40.0-50.0); HGB 16.4 g/dL (13.5-17.5); Immature Grans % 0.8 %; Lymphocytes % 16.3 %; MCH 28.7 pg (27.0-33.0); MCHC 32.5 % (32.0-36.0); MCV 88 fL (80-95); MPV 10.8 fL (8.0-11.0); Monocytes % 7.4 %; Neutrophils % 67.8 %; Platelet Count 192 10^3/uL (130-400); RBC 5.72 10^6/uL (4.36-5.78); RDW 13.9 % (11.8-14.1); RDW-SD 44.3 fL; WBC 11.19 10^3/uL (4.4-10.8)
[2025-02-03 22:07] LABS: FREE T4 1.22 ng/dL (0.76-1.46); NT-proBNP 26 pg/mL (<300); TSH 3.45 uIU/mL (0.36-3.74)
[2025-02-05 09:27] LABS: IgA 246 mg/dL (85-499); IgG 806 mg/dL (610-1616); IgM 102 mg/dL (35-242)
[2025-02-05 10:22] LABS: Anion Gap 13.7 mmol/L (3-11); BUN 16 mg/dL (7-18); CO2 22.3 mmol/L (21.0-32.0); Chloride 105 mmol/L (98-107); Estimated GFR 81.47 (mL/min/1.73m2); Glucose 81 mg/dL (74-106); Potassium 4.5 mmol/L (3.5-5.1); Sodium 141 mmol/L (136-145)
[2025-02-05 12:59] LABS: Albumin 61.5 % (55.8-66.1); Albumin g/dL 4.2 g/dL (3.6-5.2); Total Protein 6.9 g/dL (6.3-8.2)
[2025-02-05 15:17] LABS: Albumin, Urine % 22.7 %; Albumin, Urine mg/dL <1 mg/dL; Globulins, Urine % 77.3 %; Globulins, Urine mg/dL <4 mg/dL; Immunotyping, Urine (See Note); Total Protein Urine <5 mg/dL (See Note)
== END 2025-02-03 17:59 | disposition home or self-care (01) ==
LOC: NCHCN 17:58
PROVIDERS: Visit Provider Nurse Practitioner Family
DX: L29.9 Pruritus, unspecified (principal)
CPT/HCPCS: 80048; 82784; 84156; 84166; 86335; 83880; 84165; 84439; 84443; 85025

== ENCOUNTER 2025-09-23 18:00 | Outpatient (REF) | payer MEDICARE, SELFPAY ==
[2025-09-23 22:59] LABS: Microalb ug/mg Crea 6.9 ug/mg Cr
== END 2025-09-23 18:01 | disposition home or self-care (01) ==
LOC: NCHCN 18:00
PROVIDERS: Visit Provider Nurse Practitioner Family
DX: E11.9 Type 2 diabetes mellitus without complications (principal)
CPT/HCPCS: 82043; 82570